=== PATIENT | male | born 1995 | race Caucasian/White ===

== ENCOUNTER 2021-06-17 09:13 | Emergency (ER) | payer OTHER ==
[~2021-06-17] VITALS: Ht 177.8 cm; Wt 109.1 kg
[2021-06-17 12:42] VITALS: BP 148/94
== END 2021-06-17 12:57 | disposition home or self-care (01) ==
LOC: EMS 09:18
DX: S93.402A Sprain of unspecified ligament of left ankle, initial encounter (principal); X50.1XXA Overexertion from prolonged static or awkward postures, initial encounter; Y93.67 Activity, basketball; Y92.89 Other specified places as the place of occurrence of the external cause; Y99.8 Other external cause status
CPT/HCPCS: 99283

== ENCOUNTER 2021-12-04 01:36 | Emergency (ER) | payer OTHER ==
[~2021-12-04] VITALS: Ht 177.8 cm; Wt 97.7 kg
[2021-12-04 01:39] VITALS: BP 100/59
[2021-12-04] MEDS ORDERED: BUPR-345 PO (01:44)
[2021-12-04] MEDS ORDERED: AMPH12.52 PO (01:46)
[2021-12-04] MEDS ORDERED: HYDROCODONE/ACETAMINOPHEN 5-325 MG TABLET PO ONE (02:30)
== END 2021-12-04 02:47 | disposition left against medical advice (07) ==
LOC: EMS 01:41
DX: S01.01XA Laceration without foreign body of scalp, initial encounter (principal); S40.811A Abrasion of right upper arm, initial encounter; F32.9 Major depressive disorder, single episode, unspecified; F10.20 Alcohol dependence, uncomplicated; F41.9 Anxiety disorder, unspecified; V29.9XXA Motorcycle rider (driver) (passenger) injured in unspecified traffic accident, initial encounter; Y93.I9 Activity, other involving external motion; Y92.89 Other specified places as the place of occurrence of the external cause; Y99.8 Other external cause status
CPT/HCPCS: 99283

== ENCOUNTER 2021-12-13 10:36 | Emergency (ER) | payer OTHER ==
[~2021-12-13] VITALS: Ht 177.8 cm; Wt 97.7 kg
[~2021-12-13 10:36] MED LIST: AMPH12.52 PO; BUPR-345 PO
[2021-12-13 11:55] VITALS: BP 122/78
== END 2021-12-13 11:57 | disposition home or self-care (01) ==
LOC: EMS 10:37
DX: S01.01XD Laceration without foreign body of scalp, subsequent encounter (principal); X58.XXXD Exposure to other specified factors, subsequent encounter; F41.9 Anxiety disorder, unspecified; F32.A Depression, unspecified; F90.9 Attention-deficit hyperactivity disorder, unspecified type; Z48.02 Encounter for removal of sutures
CPT/HCPCS: 99281; Z7502